=== PATIENT | male | born 1975 | race Caucasian/White ===

== ENCOUNTER 2020-07-26 11:57 | Outpatient (CLI) | payer MEDICARE, SELFPAY ==
[2020-07-26 12:17] LABS: Hematocrit 43.7 % (42.0-52.0); Hemoglobin 15.3 g/dL (14.0-18.0); Mean Corpuscular Hemoglobin 30.5 pg (26-34); Mean Corpuscular Volume 87.2 fl (80-100); Mean Platelet Volume 10.5 fl (7.4-10.4); Platelet Count Result 277 k/mm3 (150-375); Red Blood Count 5.01 M/mm3 (4.6-6.20); White Blood Count 6.8 K/mm3 (4.5-10.0)
[2020-07-26 13:47] LABS: Add Urine Microscopic? NO; Appearance Urine Clear (Clear); Bilirubin Urine Negative (Negative); Blood Urine Negative (Negative); Color Urine Straw (Yellow); Glucose Urine UA Negative (Negative); Ketones Urine Negative (Negative); Leukocyte Esterase Ur Negative LEU/UL (Negative); Nitrate Urine Negative (Negative); Protein Urine Negative (Negative); Specific Grav Ur 1.009 (1.001-1.035); Urobilinogen Urine Negative mg/dL (<2.0)
[2020-07-26 14:00] LABS: Alanine Aminotransferase 19 U/L (4-50); Albumin Level 3.7 g/dL (3.5-5.1); Alkaline Phosphatase 94 U/L (38-126); Anion Gap 6 mmol/L (8-16); Aspartate Amino Transferase 19 U/L (17-59); Bilirubin,Total 0.5 mg/dL (0.2-1.3); Blood Urea Nitrogen 12 mg/dL (9-20); CRP 1.8 mg/dL (<1.0); Calcium 9.3 mg/dL (8.4-10.2); Carbon Dioxide 30 mmol/L (22-30); Chloride 102 mmol/L (98-107); Estimated Glomerular Filt Rate > 60; Glucose 149 mg/dL (75-110); Potassium 4.2 mmol/L (3.4-5.0); Sodium 138 mmol/L (137-145)
[2020-07-26 14:06] LABS: Erythrocyte Sedimentation Rate 19 mm/hr (0-20)
[2020-07-28 20:55] LABS: NIL 0.02 IU/mL; Quantiferon TB Plus, 1T NEGATIVE (NEGATIVE); TB1-NIL 0.01 IU/mL; TB2-NIL 0.01 IU/mL
== END 2020-07-26 11:58 | disposition home or self-care (01) ==
PROVIDERS: PCP Internal Medicine; Visit Provider Internal Medicine
DX: Z79.899 Other long term (current) drug therapy (principal); M05.79 Rheumatoid arthritis with rheumatoid factor of multiple sites without organ or systems involvement; M19.90 Unspecified osteoarthritis, unspecified site
CPT/HCPCS: 36415; 80053; 81003; 85027; 85652; 86140; 86480

== ENCOUNTER 2020-10-15 10:52 | Outpatient (CLI) | payer MEDICARE, SELFPAY ==
[2020-10-15 11:14] LABS: Hematocrit 42.3 % (42.0-52.0); Hemoglobin 14.8 g/dL (14.0-18.0); Mean Corpuscular Volume 88.5 fl (80-100); Mean Platelet Volume 10.6 fl (7.4-10.4); Platelet Count Result 246 k/mm3 (150-375); Red Blood Count 4.78 M/mm3 (4.6-6.20); Red Cell Distribution Width 13.2 % (11.5-14.5); White Blood Count 7.9 K/mm3 (4.5-10.0)
[2020-10-15 12:40] LABS: Alanine Aminotransferase 24 U/L (4-50); Albumin Level 3.7 g/dL (3.5-5.1); Alkaline Phosphatase 90 U/L (38-126); Anion Gap 4 mmol/L (8-16); Aspartate Amino Transferase 27 U/L (17-59); Bilirubin,Total 0.3 mg/dL (0.2-1.3); Blood Urea Nitrogen 13 mg/dL (9-20); CRP 1.3 mg/dL (<1.0); Calcium 9.1 mg/dL (8.4-10.2); Carbon Dioxide 27 mmol/L (22-30); Chloride 106 mmol/L (98-107); Estimated Glomerular Filt Rate > 60; Glucose 116 mg/dL (75-110); Potassium 4.2 mmol/L (3.4-5.0); Sodium 137 mmol/L (137-145)
[2020-10-15 12:46] LABS: Erythrocyte Sedimentation Rate 25 mm/hr (0-20)
[2020-10-15 13:12] LABS: Rheumatoid Factor > 120.0 IU/ML (<12)
[2020-10-15 13:36] LABS: Appearance Urine Clear (Clear); Color Urine Dark Yellow (Yellow); Specific Grav Ur 1.025 (1.001-1.035); pH Urine 7.5 (5.0-9.0)
[2020-10-15 13:37] LABS: Add Urine Microscopic? YES; Bilirubin Urine Negative (Negative); Blood Urine Negative (Negative); Glucose Urine UA Negative (Negative); Ketones Urine Negative (Negative); Nitrate Urine Negative (Negative); Protein Urine Negative (Negative)
[2020-10-15 13:38] LABS: Leukocyte Esterase Ur Negative LEU/UL (Negative); Squamous Epithelial Cell Urine Few /hpf (Few); Urobilinogen Urine Negative mg/dL (<2.0); WBC Urine 0-3 /hpf
[2020-10-21 19:39] LABS: Anti Cyclic Citrullinated Pept 40 Units (<20)
== END 2020-10-15 10:53 | disposition home or self-care (01) ==
LOC: ANHLAB 10:54
PROVIDERS: PCP Internal Medicine; Visit Provider Internal Medicine
DX: M06.09 Rheumatoid arthritis without rheumatoid factor, multiple sites (principal); M19.90 Unspecified osteoarthritis, unspecified site; Z79.899 Other long term (current) drug therapy
CPT/HCPCS: 36415; 80053; 81001; 85027; 85652; 86038; 86140; 86200; 86430

== ENCOUNTER 2020-11-15 08:42 | Outpatient (CLI) | payer MEDICARE, SELFPAY | END 2020-11-15 08:43 | disposition home or self-care (01) | LOC: ANHCOVIDVC 08:42 | PROVIDERS: PCP Internal Medicine | DX: Z23 Encounter for immunization (principal) | CPT/HCPCS: 0001A; 91300 ==

== ENCOUNTER 2020-12-06 08:41 | Outpatient (CLI) | payer MEDICARE, SELFPAY | END 2020-12-06 08:42 | disposition home or self-care (01) | LOC: ANHCOVIDVC 08:41 | PROVIDERS: PCP Internal Medicine | DX: Z23 Encounter for immunization (principal) | CPT/HCPCS: 0002A; 91300 ==

== ENCOUNTER 2021-02-28 11:32 | Outpatient (CLI) | payer MEDICARE, SELFPAY ==
[2021-02-28 11:48] LABS: Hematocrit 42.5 % (42.0-52.0); Hemoglobin 14.7 g/dL (14.0-18.0); Mean Corpuscular HGB Conc 34.6 g/dl (32-36); Mean Corpuscular Hemoglobin 30.2 pg (26-34); Mean Corpuscular Volume 87.4 fl (80-100); Mean Platelet Volume 10.1 fl (7.4-10.4); Platelet Count Result 241 k/mm3 (150-375); Red Blood Count 4.86 M/mm3 (4.6-6.20); Red Cell Distribution Width 14.4 % (11.5-14.5); White Blood Count 6.9 K/mm3 (4.5-10.0)
[2021-02-28 11:54] LABS: Add Urine Microscopic? NO; Color Urine Yellow (Yellow)
[2021-02-28 11:55] LABS: Appearance Urine Clear (Clear); Blood Urine Negative (Negative); Glucose Urine UA Negative (Negative); Ketones Urine Negative (Negative); Nitrate Urine Negative (Negative); Protein Urine Negative (Negative)
[2021-02-28 11:56] LABS: Bilirubin Urine Negative (Negative); Leukocyte Esterase Ur Negative LEU/UL (Negative); Urobilinogen Urine 0.2 mg/dL (<2.0)
[2021-02-28 13:56] LABS: Alanine Aminotransferase 18 U/L (4-50); Albumin Level 3.5 g/dL (3.5-5.1); Alkaline Phosphatase 97 U/L (38-126); Aspartate Amino Transferase 19 U/L (17-59); Bilirubin,Total 0.5 mg/dL (0.2-1.3); Chloride 103 mmol/L (98-107); Potassium 4.1 mmol/L (3.4-5.0); Sodium 135 mmol/L (137-145)
[2021-02-28 15:15] LABS: Anion Gap 9 mmol/L (8-16); Blood Urea Nitrogen 10 mg/dL (9-20); Calcium 8.7 mg/dL (8.4-10.2); Carbon Dioxide 23 mmol/L (22-30); Estimated Glomerular Filt Rate > 60; Glucose 187 mg/dL (65-110)
[2021-02-28 16:23] LABS: Erythrocyte Sedimentation Rate 23 mm/hr (0-20)
[2021-02-28 17:34] LABS: CRP 1.5 mg/dL (<1.0)
== END 2021-02-28 11:33 | disposition home or self-care (01) ==
PROVIDERS: PCP Internal Medicine; Visit Provider Internal Medicine
DX: M05.79 Rheumatoid arthritis with rheumatoid factor of multiple sites without organ or systems involvement (principal); M19.90 Unspecified osteoarthritis, unspecified site
CPT/HCPCS: 36415; 80053; 81003; 85027; 85652; 86140

== ENCOUNTER 2021-10-04 12:18 | Outpatient (CLI) | payer MEDICARE, SELFPAY ==
[2021-10-04 12:42] LABS: Hemoglobin 15.3 g/dL (14.0-18.0); Mean Corpuscular Hemoglobin 31.4 pg (26-34); Mean Corpuscular Volume 92.4 fl (80-100); Mean Platelet Volume 10.5 fl (7.4-10.4); Platelet Count Result 248 k/mm3 (150-375); Red Blood Count 4.87 M/mm3 (4.6-6.20); Red Cell Distribution Width 13.3 % (11.5-14.5); White Blood Count 7.9 K/mm3 (4.5-10.0)
[2021-10-04 14:39] LABS: Add Urine Microscopic? NO; Appearance Urine Clear (Clear); Bilirubin Urine Negative (Negative); Blood Urine Negative (Negative); Color Urine Straw (Yellow); Glucose Urine UA Negative (Negative); Ketones Urine Negative (Negative); Leukocyte Esterase Ur Negative LEU/UL (Negative); Nitrate Urine Negative (Negative); Protein Urine Negative (Negative); Specific Grav Ur 1.009 (1.001-1.035); Urobilinogen Urine Negative mg/dL (<2.0)
[2021-10-04 14:45] LABS: Alanine Aminotransferase 21 U/L (4-50); Albumin Level 3.9 g/dL (3.5-5.1); Alkaline Phosphatase 110 U/L (38-126); Anion Gap 7 mmol/L (8-16); Aspartate Amino Transferase 44 U/L (17-59); Bilirubin,Total 0.4 mg/dL (0.2-1.3); Blood Urea Nitrogen 13 mg/dL (9-20); Calcium 8.8 mg/dL (8.4-10.2); Carbon Dioxide 27 mmol/L (22-30); Chloride 105 mmol/L (98-107); Estimated Glomerular Filt Rate > 60; Glucose 129 mg/dL (65-110); Potassium 3.7 mmol/L (3.4-5.0); Sodium 139 mmol/L (137-145); Uric Acid 6.2 mg/dL (3.5-8.5)
[2021-10-04 15:07] LABS: Erythrocyte Sedimentation Rate 15 mm/hr (0-20)
[2021-10-04 19:22] LABS: CRP 3.3 mg/dL (<1.0)
[2021-10-07 11:47] LABS: NIL 0.01 IU/mL; Quantiferon TB Plus, 1T NEGATIVE (NEGATIVE)
== END 2021-10-04 12:19 | disposition home or self-care (01) ==
PROVIDERS: PCP Internal Medicine; Visit Provider Internal Medicine
DX: M06.09 Rheumatoid arthritis without rheumatoid factor, multiple sites (principal); M19.90 Unspecified osteoarthritis, unspecified site
CPT/HCPCS: 36415; 80053; 81003; 84550; 85027; 85652; 86140; 86480

== ENCOUNTER 2023-11-12 09:23 | Emergency (ER) | payer OTHER, SELFPAY ==
[2023-11-12] VITALS (9 sets, daily range): BP systolic 103–141; BP diastolic 60–86; PULSE 86–99; RESP 17–24; TEMP 36.7; O2SAT 95–100
--- NOTE | ~2023-11-12 | CT_ITS ---
EXAMINATION: CTA chest PE protocol DATE: 11/12/2023 11:12 INDICATION: Shortness of breath. TECHNIQUE: Computed tomography angiography (CTA) of the chest was performed with 100 mL Omnipaque-350 intravenous contrast timed to evaluate the pulmonary arteries. Coronal maximum intensity projection 3D-reconstructions were created by the technologist. Automated exposure control and iterative reconst ruction technique were employed. The dose-length product was 2101.67 mGy-cm. COMPARISON: None. FINDINGS: There is mild emphysema. There is mild atelectasis bilaterally. There are airspace and grou ndglass opacities in left lower lobe. There is a small left pleural effusion. Cardiomegaly is noted. No pericardial effusion. The central pulmonary is enlarged, consistent with pulmonary arterial hypert ension. There is no pulmonary embolus. There is mild mediastinal lymphadenopathy. The gallbladder is distended. There is mild thoracic spondylosis. IMPRESSION: 1. No pulmonary embolus. 2. Airspace and groundglass opacities in left lung lower lobe, consistent with atelectasis versus pne umonia. 3. Small left pleural effusion. 4. Mild emphysema. 5. Mild mediastinal lymphadenopathy, likely reactive. 6. Gallbladder distention, which may be secondary to fasting. Correlate with physical exam to exclude acute cholecystitis. Reviewed, dictated and finalized at location A. IMPRESSION: 1. No pulmonary embolus. 2. Airspace and groundglass opacities in left lung lower lobe, consistent with atelectasis versus pneumonia. 3. Small left pleural effusion. 4. Mild emphysema. 5. Mild mediastinal lymphadenopathy, likely reactive. 6. Gallbladder distention, which may be secondary to fasting. Correlate with ph ysical exam to exclude acute cholecystitis.
--- NOTE | ~2023-11-12 | XR_ITS ---
Portable chest x-ray Comparison: None Clinical History: Chest pain Findings: Lungs are clear, without focal consolidation or pleural effusion. Cardiomediastinal silho uette is enlarged. Bones and soft tissues are unremarkable. Impression: Clear lungs. Cardiomegaly. Reviewed, dictated and finalized at location . Impression: Clear lungs. Cardiomegaly.
--- NOTE | 2023-11-12 09:26 | ECG_ITS ---
Measurements Intervals [place] Rate: 101 P: 48 FL: 141 QRS: 22 QRSD: 118 T: 26 QT: 334 AVG RR: 589 QTc: 392 QTCB: 435 QTCF: 398 Interpretive Statements SINUS TACHYCARDIA POSSIBLE LEFT ATRIA ENLARGEMENT [-0.1mV P WAVE ON V1/V2] MODERATE INTRAVENTRICULAR CONDUCTION DELAY [110+ ms QRS DURATION] NONSPECIFIC ST & T WAVE ABNORMALITY ABNORMAL ECG SEE SCANNED COPY FOR SIGNATURE MTDD
--- NOTE | 2023-11-12 09:34 | ED.CHESTPAIN ---
HPI - Chest Pain General Chief Complaint: Chest Pain Stated Complaint: chest pain History of Present Illness HPI narrative: 48-year-old male presenting to the emergency department for evaluation of chest pain. Patient denies any prior history of coronary artery disease but does have history of hypertension and diabetes. Patient began having chest pain last night. Patient states the pain is worsened with deep inspiration. Patient presented to [place] urgent care and due to the EKG changes they called EMS for a STEMI. Prior to arrival EKG was reviewed by Cardiology and they did not feel this was an acute STEMI. Upon arrival emergency department patient had been treated with nitro and aspirin. Patient states in response to the nitro his pain did improve. Shortly after arrival to the emergency department patient had worsening his chest pain and nitro was read given, nitropaste was placed on chest and EKG was repeated. Patient reports he had a stress test approximately 1 month ago at [facility]. Patient denies any prior history of cardiac catheterization. Related Data Home Medications Medication Instructions Recorded Confirmed furosemide 40 mg tablet 40 mg PO QAM 03/31/20 04/19/23 glimepiride 4 mg tablet 4 mg PO QAM 03/31/20 04/19/23 losartan 25 mg tablet 25 mg PO DAILY 03/31/20 04/19/23 metformin 500 mg tablet 500 mg PO DAILY 03/31/20 04/19/23 multivitamin 1 tablet PO DAILY 12/02/21 04/19/23 Allergies Allergy/AdvReac Type Severity Reaction Status Date / Time No Known Allergies Allergy Verified 11/12/23 09:46 Review of Systems Review of Systems: All systems reviewed & are unremarkable except as noted in HPI and below PMFSH Past Medical History Medical History Annular psoriasis (~2014) Arthritis Current smoker Depression Diabetes Encounter for screening for other viral diseases Pemphigus vulgaris Psoriatic arthritis Rheumatoid arthritis with rheumatoid factor of multiple sites without organ or systems involvement Seronegative rheumatoid arthritis of multiple sites Surgical History Surgical History H/O hernia repair H/O shoulder surgery Social History Social History Smoking packs per day: 2.5 Smoking cigarettes per day: 50.0 Years smoked: 30 Smoking pack-years: 75.00 Smoking status: Current every day smoker Tobacco type: cigarettes Alcohol intake: current Alcohol use details: Rum-weekly Substance use: never Gender identity (if verbalized by the patient): Male Spiritual care concerns: No Exam Narrative: APPEARANCE: Well appearing, no pain, no distress, well-nourished. HEAD: normocephalic, atraumatic. EYES: PERRLA/EOMI, conjunctivae clear. NOSE: Normal no drainage EARS:TMS clear with good light reflex. THROAT: Pharynx clear, no exudate. NECK: Supple. No adenopathy, no masses. RESPIRATORY: Airway patent, respirations nonlabored. Clear to auscultation bilaterally, no rales, rhonchi, wheezing. CARDIOVASCULAR: Regular rate and rhythm without murmurs rubs or gallops. ABDOMINAL: Soft, nontender, nondistended, normal bowel sounds MUSCULOSKELETAL: Moves all extremities. Strength/ROM intact, No edema, No calf tenderness. NEURO: Alert. Cranial nerves II through XII intact. Good gait. Good coordination SKIN: Warm, dry. Normal Color PSYCHIATRIC: Normal affect/mood. Course Vital Signs Vital signs: Vital Signs Temperature 98.1 F 11/12/23 09:22 Pulse Rate 98 11/12/23 09:22 Respiratory Rate 20 11/12/23 09:22 Blood Pressure 141/86 H 11/12/23 09:22 Pulse Oximetry 99 11/12/23 09:22 Oxygen Delivery Room Air 11/12/23 09:22 Temperature 98.1 F 11/12/23 09:22 Pulse Rate 86 11/12/23 13:55 Respiratory Rate 17 11/12/23 13:55 Blood Pressure 115/71 11/12/23 13:55 Pulse Oximetry 99 11/12/23 13:55 Oxyg
--- NOTE | 2023-11-12 09:38 | ECG_ITS ---
Measurements Intervals [place] Rate: 99 P: 41 [place]: 156 QRS: 10 QRSD: 117 T: 16 QT: 345 AVG RR: 603 QTc: 401 QTCB: 444 QTCF: 408 Interpretive Statements SINUS RHYTHM POSSIBLE LEFT ATRIA ENLARGEMENT [-0.1mV P WAVE ON V1/V2] MODERATE INTRAVENTRICULAR CONDUCTION DELAY [110+ ms QRS DURATION] NONSPECIFIC ST & T WAVE ABNORMALITY ABNORMAL ECG SEE SCANNED COPY FOR SIGNATURE MTDD
[2023-11-12] MEDS: NITROGLYCERIN SL 0.4 MG TABLET SUBLINGUAL (09:41)
[2023-11-12] MEDS: MORPHINE SULFATE (*CRX) 4 MG/ML INJ IV PUSH (09:46)
[2023-11-12 09:49] LABS: Basophils Percent Auto 0.3 % (0.2-1.2); Eosinophils Absolute Auto 0.1 K/mm3 (0-0.3); Eosinophils Percent Auto 0.7 % (0-4.4); Hematocrit 45.7 % (42.0-52.0); Hemoglobin 15.8 g/dL (14.0-18.0); Immature Granulocyte Absolute 0.07 K/mm3 (0.00-0.031); Immature Granulocyte Percent A 0.5 % (0-0.5); Lymphocytes Absolute Auto 0.89 K/mm3 (0.9-3.2); Lymphocytes Percent Auto 6.6 % (18.3-44.2); Mean Corpuscular HGB Conc 34.6 g/dl (32-36); Mean Corpuscular Hemoglobin 30.5 pg (26-34); Mean Corpuscular Volume 88.2 fl (80-100); Mean Platelet Volume 11.6 fl (7.4-10.4); Monocytes Absolute Auto 1.3 K/mm3 (0.1-0.6); Monocytes Percent Auto 9.7 % (2.6-8.5); Neutrophils Absolute Auto 11.1 K/mm3 (1.3-6.7); Neutrophils Percent Auto 82.2 % (45.5-73.1); Platelet Count Result 192 k/mm3 (150-375); Red Blood Count 5.18 M/mm3 (4.6-6.20); Red Cell Distribution Width 14.5 % (11.5-14.5); White Blood Count 13.6 K/mm3 (4.5-10.0)
[2023-11-12 09:55] LABS: Glucose Point of Care 296 mg/dl (65-105)
[2023-11-12] MEDS: NITROGLYCERIN OINTMENT 1 INCH DOSE TRANSDERM (09:56)
[2023-11-12 10:04] LABS: Prothrombin Time 13.5 Seconds (11.1-14.7)
[2023-11-12 10:08] LABS: Alanine Aminotransferase 19 U/L (6-50); Albumin Level 4.1 g/dL (3.5-5.1); Alkaline Phosphatase 114 U/L (38-126); Anion Gap 8 mmol/L (4-12); Aspartate Amino Transferase 17 U/L (17-59); Bilirubin,Total 1.1 mg/dL (0.2-1.3); Blood Urea Nitrogen 12 mg/dL (9-20); Calcium 9.6 mg/dL (8.4-10.2); Carbon Dioxide 27 mmol/L (22-30); Chloride 101 mmol/L (98-107); Estimated CRCL calculation 190 ml/min; Estimated Glomerular Filt Rate > 60; Glucose 296 mg/dL (65-110); Lipase 26 U/L (23-300); Potassium 4.1 mmol/L (3.4-5.0); Sodium 136 mmol/L (137-145)
[2023-11-12 10:19] LABS: D Dimer 2.03 ug/mL (<0.48)
[2023-11-12 10:20] LABS: NT Pro B Type Natriuretic Pept 317 pg/mL (19.9-100); Troponin I 0.014 ng/mL (0.000-0.034)
[2023-11-12 11:30] LABS: Appearance Urine Clear (Clear); Bilirubin Urine Negative (Negative); Blood Urine Negative (Negative); Color Urine Yellow (Yellow); Glucose Urine UA 3+ mg/dL (Negative); Ketones Urine Negative (Negative); Leukocyte Esterase Ur Negative LEU/UL (Negative); Nitrate Urine Negative (Negative); Protein Urine Negative (Negative); Specific Grav Ur 1.018 (1.001-1.035); Urobilinogen Urine 0.2 mg/dL (<2.0); pH Urine 5.5 (5.0-9.0)
[2023-11-12 11:38] LABS: Add Urine Microscopic? NO
[2023-11-12] MEDS: PANTOPRAZOLE SODIUM IV 40 MG VIAL IV PUSH (11:48)
[2023-11-12] MEDS: BELLADONNA ALK/PHENOB ELIX 10 ML, MAG HYDROX/ALUMINUM HYD/SIMETH 30 ML, LIDOCAINE HCL 2... PO (11:48)
--- NOTE | 2023-11-12 11:50 | PC.NURSE ---
EDP Jaime made aware of bp. nitro past not helping with pt's pain. removed nitro paste from chest per EDNathan Sandoval.
--- NOTE | 2023-11-12 12:30 | ECG_ITS ---
Measurements Intervals [place] Rate: 89 P: 7 [place]: 131 QRS: 1 QRSD: 121 T: 9 QT: 358 AVG RR 670 QTc: 405 QTcB 437 QTcF 409 Interpretive Statements SINUS RHYTHM MODERATE INTERVENTRICULAR CONDUCTION DELAY [110+ ms QRS DURATION] NONSPECIFIC ST & T-WAVE ABNORMALITY ABNORMAL ECG SEE SCANNED COPY FOR SIGNATURE MTDD
[2023-11-12 12:59] LABS: Troponin I < 0.012 ng/mL (0.000-0.034)
[2023-11-12] MEDS: AMOXICILLIN/CLAVULANATE K 875-125 MG TAB 1 TABLET PO (13:35)
[2023-11-12] MEDS: AZITHROMYCIN 250 MG TABLET 500 MG PO (13:35)
[2023-11-12] MEDS: KETOROLAC 15 MG/ML VIAL (*BKC) IV PUSH (13:35)
== END 2023-11-12 13:56 | disposition home or self-care (01) ==
PROVIDERS: Emergency Provider Emergency Medicine; PCP Internal Medicine
DX: J18.9 Pneumonia, unspecified organism (principal); R09.1 Pleurisy; F17.210 Nicotine dependence, cigarettes, uncomplicated; M19.90 Unspecified osteoarthritis, unspecified site; F32.A Depression, unspecified; E11.9 Type 2 diabetes mellitus without complications; Z79.84 Long term (current) use of oral hypoglycemic drugs
CPT/HCPCS: 36415; 71045; 71275; 80053; 81003; 82948; 83690; 83880; 84484; 85025; 85380; 85610; 85730; 93005; 96374; 96375; 99284; A9270; C9113; J1885; J2270; Q9967

== ENCOUNTER 2023-11-26 10:57 | Inpatient (IN) | payer OTHER, SELFPAY ==
[2023-11-26] VITALS (48 sets, daily range): BP systolic 73–152; BP diastolic 50–96; PULSE 67–166; RESP 14–43; TEMP 36.1–36.9; O2SAT 97–100
--- NOTE | ~2023-11-26 | CT_ITS ---
EXAMINATION: CTA chest PE protocol DATE: 11/26/2023 14:18 CDT INDICATION: Tachycardia. Chest pain. TECHNIQUE: Computed tomographic angiography (CTA) of the chest was performed with 100 mL Omnipaque-35 0 intravenous contrast. The dose-length product was 1257.61 mGy-cm. Maximum intensity projection 3D-r econstructions of the aorta and other arteries were constructed by the technologist on a separate wor kstation. COMPARISON: CT dated 11/12/2023. FINDINGS: There is a small left pleural effusion. There is pericardial effusion. Gallbladder is diste nded. Mild mediastinal lymphadenopathy, likely reactive. Cardiomegaly. Mild emphysema. There are grou ndglass opacities bilaterally, predominantly affecting the lower lobes. Moderate thoracic spondylosis . No evidence for pulmonary embolism. IMPRESSION: 1. No pulmonary embolism. 2: Groundglass opacities predominantly affecting the lower lobes which may represent pneumonia, atel ectasis and/or edema. 3: Left pleural effusion. 4: Pericardial effusion is new compared with prior study. 5: Mediastinal lymphadenopathy, likely reactive. Reviewed, dictated and finalized at location B. IMPRESSION: 1. No pulmonary embolism. 2: Groundglass opacities predominantly affecting the lower lobes which may rep resent pneumonia, atelectasis and/or edema. 3: Left pleural effusion. 4: Pericardial effusion is new compared with prior study. 5: Mediastinal lymphadenopathy, likely reactive.
--- NOTE | ~2023-11-26 | XR_ITS ---
EXAMINATION: XR chest 1V portable DATE: 11/26/2023 11:52 INDICATION: Tachycardia. Diaphoresis. TECHNIQUE: A single frontal view of the chest was obtained on 2 radiographs. COMPARISON: Chest single view 11/12/2023, chest CT 11/12/2023 FINDINGS: Naty B lines are noted, consistent mild pulmonary edema. There is a small left pleural ef fusion. No pneumothorax. Cardiomegaly is noted. IMPRESSION: 1. Mild pulmonary edema. 2. Small left pleural effusion. 3. Cardiomegaly. Reviewed, dictated and finalized at location E.
--- NOTE | 2023-11-26 11:00 | ECG_ITS ---
SEE SCANNED COPY FOR CONFIRMED REPORT MTDD
[2023-11-26] MEDS: dilTIAZem HCl INJ 25 MG/5 ML VIAL 20 MG IV PUSH (11:31)
[2023-11-26] MEDS: dilTIAZem 100 MG/100 ML 100 MG/100 ML BAG 10 MG IV CONT (11:31)
--- NOTE | 2023-11-26 11:35 | ED.ARRPALP ---
HPI - Arrhythmia/Palpitations General Chief Complaint: Arrhythmia/Palpitations Stated Complaint: elevated resting heart rate Time Seen by Provider: 11/26/23 11:24 History of Present Illness HPI narrative: Pt recently had pneumonia and has been on steroids and antibiotics. Pt noted by Home Health to be tachycardic and sent to ER. Pt denies CP but does have some leg swelling and SOB. Related Data Home Medications Medication Instructions Recorded Confirmed furosemide 40 mg tablet 40 mg PO QAM 03/31/20 04/19/23 glimepiride 4 mg tablet 4 mg PO QAM 03/31/20 04/19/23 losartan 25 mg tablet 25 mg PO DAILY 03/31/20 04/19/23 metformin 500 mg tablet 500 mg PO DAILY 03/31/20 04/19/23 multivitamin 1 tablet PO DAILY 12/02/21 04/19/23 Allergies Allergy/AdvReac Type Severity Reaction Status Date / Time No Known Allergies Allergy Verified 11/26/23 10:58 Review of Systems Review of Systems: All systems reviewed & are unremarkable except as noted in HPI and below PMFSH Past Medical History Medical History Annular psoriasis (~2014) Arthritis Current smoker Depression Diabetes Encounter for screening for other viral diseases Pemphigus vulgaris Psoriatic arthritis Rheumatoid arthritis with rheumatoid factor of multiple sites without organ or systems involvement Seronegative rheumatoid arthritis of multiple sites Surgical History Surgical History H/O hernia repair H/O shoulder surgery Social History Social History Smoking packs per day: 2.5 Smoking cigarettes per day: 50.0 Years smoked: 30 Smoking pack-years: 75.00 Smoking status: Current every day smoker Tobacco type: cigarettes Alcohol intake: current Alcohol use details: Rum-weekly Substance use: never Gender identity (if verbalized by the patient): Male Spiritual care concerns: No Exam Const: General: healthy appearing and no acute distress Nutritional Appearance: obese Orientation/consciousness: patient oriented x3 Limitations: no limitations Chest: Chest palpation & inspection: normal inspection of the chest Resp: Effort & Inspection: normal respiratory effort Auscultation: clear to auscultation bilaterally Cardio: Rate: tachycardic Rhythm: regular rhythm GI: Auscultation: normal bowel sounds Skin: General skin exam: normal color Wounds: no wounds Neuro: General: patient oriented x3, moves all extremities, no meningeal signs, no focal motor deficits and CN's II-XI intact bilaterally Cranial nerves: Yes Nystagmus not present Speech: normal speech Extrem: General: edema Psych: Mental Status: mental status grossly normal Affect: normal affect Attitude: cooperative Course Course Emergency Course: gave cardizem bolus of 20 mg and then 30 mg as well as titrated drip without effect on HR, gave labetolol 20 mg IVP which also had no effect on HR but dropped BP, gave 500 ml bolus for BP and called Laura Lang, cardiology, recommended amiodarone, will give bolus and then drip if converts. still HR of 150 at 1335 and now pt diaphoretic and complaining of right sided CP, repeat ekg stil a flutter with rvr rate 151, will give a low dose fentanyl and cta chest. CTA no PE, pericardial effusion new pneumonia vs edema. discussed with Laura Lang again, said IMU appropriate, can try po metoprolol and wait for meds to kick in. will wait before cardioversion since stable and risk of cva with unknown duration of a flutter. discussed with Dr Mcgowan and ok accepting if cardiology ok with IMU. Vital Signs Vital signs: Vital Signs Temperature 98.4 F 11/26/23 11:02 Pulse Rate 67 11/26/23 11:02 Respiratory Rate 20 11/26/23 11:02 Blood Pressure 152/88 H 11/26/23 11:02 Pulse Oximetry 99 11/26/23 11:02 Oxygen Delivery Room Air 11/26/23 11:02 Temperature 97.8 F 11/25
[2023-11-26 11:39] LABS: Basophils Absolute Auto 0.1 K/mm3 (0.0-0.1); Basophils Percent Auto 0.5 % (0.2-1.2); Eosinophils Absolute Auto 0.1 K/mm3 (0-0.3); Eosinophils Percent Auto 0.9 % (0-4.4); Hematocrit 44.4 % (42.0-52.0); Hemoglobin 15.3 g/dL (14.0-18.0); Immature Granulocyte Absolute 0.04 K/mm3 (0.00-0.031); Immature Granulocyte Percent A 0.3 % (0-0.5); Lymphocytes Absolute Auto 1.33 K/mm3 (0.9-3.2); Lymphocytes Percent Auto 10.6 % (18.3-44.2); Mean Corpuscular HGB Conc 34.5 g/dl (32-36); Mean Corpuscular Hemoglobin 30.7 pg (26-34); Mean Corpuscular Volume 89.2 fl (80-100); Monocytes Absolute Auto 1.1 K/mm3 (0.1-0.6); Neutrophils Absolute Auto 9.9 K/mm3 (1.3-6.7); Neutrophils Percent Auto 78.7 % (45.5-73.1); Platelet Count Result 276 k/mm3 (150-375); Red Blood Count 4.98 M/mm3 (4.6-6.20); Red Cell Distribution Width 13.8 % (11.5-14.5); White Blood Count 12.6 K/mm3 (4.5-10.0)
[2023-11-26 11:49] LABS: Alanine Aminotransferase 19 U/L (6-50); Albumin Level 4.1 g/dL (3.5-5.1); Alkaline Phosphatase 114 U/L (38-126); Anion Gap 6 mmol/L (4-12); Aspartate Amino Transferase 19 U/L (17-59); Bilirubin,Total 0.8 mg/dL (0.2-1.3); Blood Urea Nitrogen 10 mg/dL (9-20); Calcium 9.3 mg/dL (8.4-10.2); Carbon Dioxide 31 mmol/L (22-30); Chloride 103 mmol/L (98-107); Estimated CRCL calculation 191 ml/min; Estimated Glomerular Filt Rate > 60; Glucose 321 mg/dL (65-110); Potassium 3.6 mmol/L (3.4-5.0); Sodium 140 mmol/L (137-145)
[2023-11-26 11:52] LABS: INR 1.1; Prothrombin Time 14.5 Seconds (11.1-14.7)
[2023-11-26 11:53] LABS: Partial Thromboplastin Time 28.4 Seconds (22.3-36.8)
[2023-11-26 11:57] LABS: NT Pro B Type Natriuretic Pept 1050 pg/mL (19.9-100)
[2023-11-26 12:06] LABS: Troponin I 0.039 ng/mL (0.000-0.034)
[2023-11-26] MEDS: dilTIAZem HCl INJ 25 MG/5 ML VIAL 30 MG IV PUSH (12:10)
[2023-11-26] MEDS: LABETALOL HCL INJ 100 MG/20 ML VIAL 20 MG IV PUSH (12:39)
--- NOTE | 2023-11-26 12:43 | PC.NURSE ---
Dr. Villareal informed heart rate unchanged. Orders received for Labatelol & contibue Cardizem drip. Pt denies any CP or SOB
[2023-11-26] MEDS: SODIUM CHLORIDE 0.9% IV 500 ML 999 ML (12:56)
--- NOTE | 2023-11-26 13:02 | PC.NURSE ---
After Labetolol pt became diaphorectic, states he feels weird, B/P 73/[address] Villareal informed and assessed pt Cardizem drip stopped, NS bolus initiated.
[2023-11-26 13:07] LABS: Glucose Point of Care 291 mg/dl (65-105)
[2023-11-26] MEDS: AMIODARONE 150 MG/D5W 100 ML 150 MG/100 ML BAG 600 MG IV CONT ×2 (13:25→20:01)
--- NOTE | 2023-11-26 13:39 | PC.NURSE ---
1330- Pt c/o midsternal chest pain that radiates to right chest & axilla area. Remain diaphoretic & aflutter on monitor. Dr. Villareal informed came to bedside to assess. EKG performed with no change from initial EKG. Orders received
[2023-11-26] MEDS: fentaNYL CITRATE INJ (*CRX) 100 MCG/2 ML VIAL 25 MCG IV PUSH (13:40)
[2023-11-26 15:10] LABS: Thyroid Stimulating Hormone 0.258 uIU/mL (0.465-4.680)
[2023-11-26] MEDS: AMIODARONE 360 MG/D5W 200 ML 360 MG/200 ML BAG 33.33 MG IV CONT (15:14)
--- NOTE | 2023-11-26 15:17 | PC.NURSE ---
1400Pt states chest pain down to a 3, skim dry & cool.
[2023-11-26] MEDS: METOPROLOL SUCCINATE EXT REL 25 MG TABCR PO (15:22)
[2023-11-26 15:40] LABS: Troponin I 0.027 ng/mL (0.000-0.034)
--- NOTE | 2023-11-26 16:05 | PC.NURSE ---
Pt tolerating Amiodarone well. Pt remains in Aflutter.
--- NOTE | 2023-11-26 16:48 | ADMGEN ---
This patient, Vladimir Feng, was admitted to IMU Room 207-01 on 11/26/23 at 1628. Patient/family oriented to hospital policies and general routines including ID bracelet, bed and alarms, visiting hours, pain management, procedures, bathroom and other care routines, personal items, smoking policy, room service/diet, and visiting hours. Information on how to activate the Rapid Response Team has been discussed. Patient/Family are encouraged to report perceived risks to care and to ask questions if they do not understand what they are told or what they should do.
[2023-11-26 17:58] LABS: Troponin I 0.064 ng/mL (0.000-0.034)
[2023-11-26 18:04] LABS: CRP 15.9 mg/dL (<1.0)
--- NOTE | 2023-11-26 18:07 | PM.IMHP ---
H&P: HPI History of Present Illness Date/Time: 11/26/23 18:07 Chief Complaint: Shortness of breath Narrative: This is a 48-year-old male with a history of morbid obesity, hypertension, [id number] diabetes mellitus, lower extremity swelling, tobacco abuse, alcohol use, COPD, rheumatoid arthritis. He denies any cardiac history and apparently had a stress test at [facility] 1 month ago. At the beginning of November he presented to [facility] with chest pain. He was deemed not to have a cardiac event but was supposed to be admitted for cardiac rule out but the patient left. There was a possibility of pneumonia so he was given Augmentin and azithromycin. He reports he finished that antibiotic course and also took a steroid pack. He reports he has not felt well since then sometimes he has chest pain on the right ribs but mostly presented because of shortness of breath. He denies feeling palpitations or diaphoresis nausea vomiting abdominal pain or diarrhea. He has not had a upper respiratory infection recently. He has had lower extremity edema for some time does take furosemide at home. He started taking phentermine for weight loss in the past few months. He stopped his methotrexate and wanted to follow-up with a paper processing machine helper for his rheumatoid arthritis. In [facility] he was found to be in atrial flutter with a rapid rate of 150-160. He presented normotensive but after multiple blood pressure lowering medications his systolic has been running in the 90s to 100s. EKG did not demonstrate acute ischemia however troponin was 0.039. BNP 1050. TSH 0.25 a. Cardiology was consulted from the ER and advised to be admitted to IMU. A CTA demonstrated no PE but ground-glass opacities affecting the lower lobes which could be edema or pneumonia, left-sided pleural effusion size undetermined, pericardial effusion size undetermined. He was given diltiazem 20 mg IV x1, diltiazem 30 mg IV x1, labetalol 20 mg IV x1, sodium chloride bolus 500 cc, fentanyl 25 mcg IV x1, metoprolol succinate 25 mg p.o. x1, amiodarone bolus 150 mg, then placed on amiodarone GTT at 1 milligrams/minute. Upon evaluation in room 207 the patient states he feels slightly better than when he came in and does not really have shortness of breath or chest pain at the moment. Sits up at the edge of bed and converses normally. Review of Systems Review of Systems: All systems reviewed & are unremarkable except as noted in HPI and below (Subjective) [facility] Past Medical History Medical History Annular psoriasis (~2014) Arthritis Current smoker Depression Diabetes Encounter for screening for other viral diseases Pemphigus vulgaris Psoriatic arthritis Rheumatoid arthritis with rheumatoid factor of multiple sites without organ or systems involvement Seronegative rheumatoid arthritis of multiple sites Surgical History Surgical History H/O hernia repair H/O shoulder surgery Family History Family History (Updated 11/26/23 @ 17:30 by Kylee Burgos RN) Other Unknown family medical history Social History Social History Smoking packs per day: 2.5 Smoking cigarettes per day: 50.0 Years smoked: 30 Smoking pack-years: 75.00 Smoking status: Current every day smoker Tobacco type: cigarettes Alcohol intake: current Drinks per week: 6 Alcohol use details: Rum-weekly Substance use: never Substance use type: does not use Do You Feel Safe in your Home?: Yes Lack of Transportation: No Lack of Food: Never True Current Housing: I Have Housing Concerned About Future Housing: No Difficulty Paying Gas/Electric Bills: No Difficulty Paying for Meds: No Currently Unemployed: No Education: High School Diploma/GED Difficulty w/ Childcare or Family Care: No Gender identity (if verb
[2023-11-26 18:37] LABS: Erythrocyte Sedimentation Rate 42 mm/hr (0-20)
[2023-11-26 18:51] LABS: Free T4 Free Thyroxine 2.45 ng/mL (0.78-2.19)
[2023-11-26] MEDS: HEPARIN SOD/D5W 100 UNITS/ML 25,000 UNITS/250 ML BAG 15 UNITS IV CONT (19:29)
[2023-11-26 20:26] LABS: Influenza A QL RT-PCR Negative (Negative); Influenza B QL RT-PCR Negative (Negative); RSV RNA, RT-PCR Negative (Negative); SARS-CoV-2 RNA PCR Negative (Negative)
[2023-11-26] MEDS: CEFEPIME 2 GM/NS 50 ML 2 GM/50 ML BAG IVPB (20:53)
[2023-11-26] MEDS: AMIODARONE 360 MG/D5W 200 ML 360 MG/200 ML BAG 16.67 MG IV CONT (20:53)
[2023-11-26 21:08] LABS: MRSA (PCR) DETECTED (NOT DETECTE)
[2023-11-26] MEDS: VANCOMYCIN 1,250 MG/NS 250 ML 1,250 MG/250 ML BAG 166.67 MG IVPB ×2 (21:36→23:06)
[2023-11-26] MEDS: METOPROLOL TARTRATE INJ 5 MG/5 ML VIAL IV PUSH ×3 (22:26→23:46)
[2023-11-26 23:10] LABS: Troponin I 0.147 ng/mL (0.000-0.034)
--- NOTE | 2023-11-26 23:54 | ECG_ITS ---
SEE SCANNED COPY FOR CONFIRMED REPORT MTDD
[2023-11-27] VITALS (25 sets, daily range): BP systolic 105–129; BP diastolic 67–115; PULSE 146–160; RESP 20–28; TEMP 36.1–36.9; O2SAT 96–100
--- NOTE | 2023-11-27 | ECHO_ITS ---
Patient Info Name: Vladimir Feng Age: 48 years : 1975 Gender: Male Ht: 75 in Wt: 396 lbs BSA: 3.17 m2 HR: 148 bpm BP: 121 / 92 mmHg Heart Rhythm: Tachycardia, Atrial Flutter Technical Quality: Fair Exam Date: 11/27/2023 8:41 AM Exam Location: Echo Lab Patient Status: Inpatient Admit Date: 11/26/2023 Staff Ordering Physician: Sherri Mcgowan MD Tool Repair Technician: Bobbi Diaz RDCS Attending Provider: Sherri Mcgowan MD Exam Type: CA echo dop color flow w con Study Info Indications - pericardial effusion seen on ct Complete two-dimensional, color flow and Doppler transthoracic echocardiogram is performed with contrast to opacify the left ventricle and to improve the deliniation of the left ventricle endocardial borders. Contrast/Agitated Saline Contrast/Ag. Saline: Definity Amount: 2.00 ml Administered By: Bobbi Diaz RDCS Existing IV Access: Yes IV Access Condition: patent with no signs of infiltration Summary 1. Technically difficult study with limited views. 2. Left ventricular chamber dimension is normal. 3. Left ventricular systolic function is moderately reduced, estimated at 30-35%. However, patient is quite tachycardic during this study. 4. There is mildly increased left ventricular wall thickness. 5. Right ventricular chamber dimension is normal. 6. Right ventricular systolic function is reduced. 7. There is small circumferential pericardial effusion. 8. No significant valvular disease appreciated on this study. Left Ventricle Left ventricular chamber dimension is normal. Left ventricular systolic function is moderately reduced, estimated at 30-35%. However, patient is quite tachycardic during this study. There is mildly increased left ventricular wall thickness. Right Ventricle Right ventricular chamber dimension is normal. Right ventricular systolic function is reduced. Left Atria Left atrial chamber dimension is normal. Right Atria Right atrial chamber dimension is normal. Atrial Septum Intact interatrial septum visualized by color flow imaging. Aortic Valve The aortic valve is not well visualized. There is no aortic valve stenosis. There is no aortic valve regurgitation. Pulmonic Valve The pulmonic valve is not well visualized. Mitral Valve There is trace mitral valve regurgitation. The mitral valve annulus is mildly calcified. Tricuspid Valve There is trace tricuspid valve regurgitation. Pericardium/Pleural There is small circumferential pericardial effusion. Inferior Vena Cava Dilated inferior vena cava with <50% collapse upon inspiration consistent with elevated right atrial pressure, 15 mmHg. Aorta The aortic root size at the sinus of Valsalva is not well visualized. Left Ventricular Outflow Tract Name Value Normal LVOT 2D LVOT Diameter 2.03 cm LVOT Doppler LVOT Peak Gradient 3 mmHg LVOT Mean Gradient 1 mmHg LVOT VTI 11.80 cm LVOT VTI/AV VTI Ratio 0.48 LVOT Stroke Volume 38.28 ml LVOT CO 6.05 l/min LVOT CI
[2023-11-27 01:50] LABS: Partial Thromboplastin Time 34.7 Seconds (22.3-36.8)
[2023-11-27 02:02] LABS: Troponin I 0.136 ng/mL (0.000-0.034)
[2023-11-27] MEDS: NICOTINE (*PBKC) 21 MG PATCH 1 PATCH TRANSDERM (02:05)
[2023-11-27] MEDS: HEPARIN SODIUM 5,000 UNITS/ML VIAL 9500 UNITS IV PUSH ×2 (02:06→22:13)
[2023-11-27] MEDS: CEFEPIME 2 GM/NS 50 ML 2 GM/50 ML BAG IVPB ×3 (03:37→20:44)
[2023-11-27] MEDS: PERFLUTREN LIPID MICROSPHERES 1.5 ML VIAL DILUTED TO 10 ML TOTAL VOLUME IV PUSH (08:30)
[2023-11-27 08:52] LABS: Basophils Absolute Auto 0.1 K/mm3 (0.0-0.1); Basophils Percent Auto 0.5 % (0.2-1.2); Eosinophils Absolute Auto 0.1 K/mm3 (0-0.3); Eosinophils Percent Auto 1.1 % (0-4.4); Hemoglobin 13.8 g/dL (14.0-18.0); Immature Granulocyte Absolute 0.04 K/mm3 (0.00-0.031); Immature Granulocyte Percent A 0.4 % (0-0.5); Lymphocytes Absolute Auto 1.41 K/mm3 (0.9-3.2); Lymphocytes Percent Auto 13.6 % (18.3-44.2); Mean Corpuscular HGB Conc 33.7 g/dl (32-36); Mean Corpuscular Hemoglobin 30.4 pg (26-34); Mean Corpuscular Volume 90.3 fl (80-100); Mean Platelet Volume 12.8 fl (7.4-10.4); Monocytes Absolute Auto 1.1 K/mm3 (0.1-0.6); Monocytes Percent Auto 10.2 % (2.6-8.5); Neutrophils Absolute Auto 7.7 K/mm3 (1.3-6.7); Neutrophils Percent Auto 74.2 % (45.5-73.1); Platelet Count Result 263 k/mm3 (150-375); Red Blood Count 4.54 M/mm3 (4.6-6.20); Red Cell Distribution Width 13.8 % (11.5-14.5); White Blood Count 10.4 K/mm3 (4.5-10.0)
--- NOTE | 2023-11-27 09:01 | PM.CNCAR ---
Assessment and Plan Assessment and plan (1) Atrial flutter with rapid ventricular response: Code(s): I48.92 - Unspecified atrial flutter Status: Acute Assessment and Plan: New diagnosis with unknown chronicity, though he had normal pulse rate at PCP office on 11/14/23, so the onset has been since that time. On an amiodarone drip at this point and remains in atrial flutter with rapid ventricular response, rate in the 150s. Continue amiodarone drip Will add oral metoprolol for rate control Continue heparin drip Plan for SIERRA guided cardioversion tomorrow with anesthesia after surface echo from today is reviewed Continue telemetry NPO at midnight for SIERRA/CV tomorrow (2) Pericardial effusion: Code(s): I31.39 - Other pericardial effusion (noninflammatory) Status: Acute Assessment and Plan: Pericardial effusion seen on chest CTA yesterday. Will check TTE today to better define size, location, and any echocardiographic evidence of tamponade. (3) Pleural effusion: Code(s): J90 - Pleural effusion, not elsewhere classified Status: Acute (4) Current smoker: Code(s): F17.200 - Nicotine dependence, unspecified, uncomplicated Status: Acute Assessment and Plan: Smoking cessation recommended. History of Present Illness History of Present Illness Consult date/time: 11/27/23 09:01 Requesting physician: Debra Villareal III, DO Consult reason: Other (Atrial flutter) Reason For Visit: A Flutter with RVR Narrative: Vladimir Feng is a 48 year old male with type 2 diabetes mellitus, hypertension, WALKER on CPAP, and hyperlipidemia. He is also smoker and uses alcohol. He comes to the hospital because his home health nurse advised him to do so after finding that his heart rate was in the 170s yesterday. At that time, he had no symptoms that would indicate that he was tachycardic. He had however been experiencing some chest pain with deep breathing and with lying down flat. In the emergency room, EKG demonstrated rapid atrial flutter. He was given multiple doses of diltiazem with no reduction in his heart rate. Therefore, IV Lopressor was attempted which resulted in his blood pressure dropping to the 80s systolic. He was then placed on an amiodarone drip which he remains on now. His heart rate remains in the 150s in atrial flutter. He denies any history of cardiac problems including any a arrhythmias, heart failure, coronary artery disease (apparently had a stress test about a month ago which was negative). He did come to [facility] a couple of weeks ago with a complaint of chest pain and had a full workup done which was essentially negative except for he was found to have a pneumonia she was treated for with antibiotics. With note, he was placed on phentermine by his primary care doctor about a month or so ago. He states that he began to notice some chest discomfort with deep breathing and lying down flat a few days ago but denies any palpitations, worsening edema, exertional chest pain, orthopnea, paroxysmal nocturnal dyspnea, syncope, or presyncope. Review of Systems Review of Systems: All systems reviewed & are unremarkable except as noted in HPI and below PMFSH Past Medical History Medical History Annular psoriasis (~2014) Arthritis Current smoker Depression Diabetes Encounter for screening for other viral diseases Pemphigus vulgaris Psoriatic arthritis Rheumatoid arthritis with rheumatoid factor of multiple sites without organ or systems involvement Seronegative rheumatoid arthritis of multiple sites Surgical History Surgical History H/O hernia repair H/O shoulder surgery Family History Family History Other Unknown family medical history Social History Social History (Review
[2023-11-27] MEDS: AMIODARONE 360 MG/D5W 200 ML 360 MG/200 ML BAG 16.67 MG IV CONT ×2 (09:02→23:37)
[2023-11-27] MEDS: VANCOMYCIN 1,500 MG/NS 500 ML 1,500 MG/500 ML BAG 250 MG IVPB ×2 (09:04→22:28)
[2023-11-27] MEDS: HEPARIN SOD/D5W 100 UNITS/ML 25,000 UNITS/250 ML BAG 20 UNITS IV CONT (09:06)
[2023-11-27 09:19] LABS: Alanine Aminotransferase 17 U/L (6-50); Albumin Level 3.6 g/dL (3.5-5.1); Alkaline Phosphatase 89 U/L (38-126); Anion Gap 8 mmol/L (4-12); Aspartate Amino Transferase 22 U/L (17-59); Bilirubin,Total 0.5 mg/dL (0.2-1.3); Blood Urea Nitrogen 12 mg/dL (9-20); Calcium 7.6 mg/dL (8.4-10.2); Carbon Dioxide 25 mmol/L (22-30); Chloride 94 mmol/L (98-107); Estimated CRCL calculation 264 ml/min; Estimated Glomerular Filt Rate > 60; Glucose 528 mg/dL (65-110); Magnesium 1.7 mg/dL (1.6-2.3); Potassium 3.4 mmol/L (3.4-5.0); Sodium 127 mmol/L (137-145)
--- NOTE | 2023-11-27 09:31 | PM.IMPN ---
Progress Note: A&P Assessment and Plan (1) Atrial flutter with rapid ventricular response: Code(s): I48.92 - Unspecified atrial flutter Status: Acute (2) Current smoker: Code(s): F17.200 - Nicotine dependence, unspecified, uncomplicated Status: Acute (3) Leukocytosis: Code(s): D72.829 - Elevated white blood cell count, unspecified Status: Acute (4) Pericardial effusion: Code(s): I31.39 - Other pericardial effusion (noninflammatory) Status: Acute (5) Pleural effusion: Code(s): J90 - Pleural effusion, not elsewhere classified Status: Acute Plan 48-year-old male with history of morbid obesity hypertension [id number] diabetes mellitus lower extremity swelling tobacco abuse alcohol use COPD rheumatoid arthritis presented with tachycardia noted by home health and was sent to the ER. He denied any chest pain but does have chronic lower extremity edema and shortness of breath. He was recently treated for pneumonia and has been on steroid and antibiotics. Also started taking phentermine for weight loss in past few months. In the ED is found to be in atrial flutter with rapid rate of 150-160 remained normotensive after multiple blood pressure lowering medications systolic blood pressure dropped. EKG did not show any acute ischemia however troponin was mildly elevated at 0.039. BNP of 1 0 50. TSH 0.25. Cardiology has been consulted. CTA was performed which showed no PE but ground-glass opacities affecting the lower lobes which could be edema or pneumonia left-sided pleural effusion pericardial effusion. He was given diltiazem 20 mg x 1 diltiazem 30 mg IV x1 labetalol 20 mg IV x1 fluid bolus fentanyl metoprolol succinate had been started on amiodarone drip since then. His blood sugar is elevated this a.m. and his heart rate has remained in 140s to 50s in atrial flutter. With been started on vancomycin and cefepime to cover for pneumonia he was recently treated with Augmentin and azithromycin 3 weeks ago.MRSA PCR was detected. Echocardiogram has been ordered. Blood culture x2 has been ordered as well. Cardiology on board and currently NPO for possible cardioversion. pericardial effusion echo planned WALKER on CPAP Hyperlipidemia Hypertension Psoriasis/rheumatoid arthritis Morbid obesity Type 2 diabetes on oral hypoglycemic agents at home: Start basal bolus insulin regimen A1c by home health was 7.1 yesterday per patient. DVT prophylaxis: Heparin GTT Lines: Peripheral IV Code Status: Full code Monitor in IMU Subjective Date/time seen: 11/27/23 09:31 Interval history: 48-year-old male with history of morbid obesity hypertension [id number] diabetes mellitus lower extremity swelling tobacco abuse alcohol use COPD rheumatoid arthritis presented with tachycardia noted by home health and was sent to the ER. He denied any chest pain but does have chronic lower extremity edema and shortness of breath. He was recently treated for pneumonia and has been on steroid and antibiotics. Also started taking phentermine for weight loss in past few months. In the ED is found to be in atrial flutter with rapid rate of 150-160 remained normotensive after multiple blood pressure lowering medications systolic blood pressure dropped. EKG did not show any acute ischemia however troponin was mildly elevated at 0.039. BNP of 1 0 50. TSH 0.25. Cardiology has been consulted. CTA was performed which showed no PE but ground-glass opacities affecting the lower lobes which could be edema or pneumonia left-sided pleural effusion pericardial effusion. He was given diltiazem 20 mg x 1 diltiazem 30 mg IV x1 labetalol 20 mg IV x1 fluid bolus fentanyl metoprolol succinate had been started on amiodarone drip since then. His blood sugar is elevated this a.m. and his heart rate has remained in 140s to 50s in atrial flutter. With been started on vancomycin and cefepime to cover for pneumonia he was rece
[2023-11-27 09:34] LABS: Procalcitonin 0.1 ng/mL
[2023-11-27 09:37] LABS: Partial Thromboplastin Time > 200.0 Seconds (22.3-36.8)
[2023-11-27] MEDS: INSULIN GLARGINE (*BKC) 100 UNITS/ML 20 UNITS SUB-Q (10:20)
[2023-11-27] MEDS: FOLIC ACID 1 MG TABLET PO (10:21)
[2023-11-27] MEDS: MULTIVITAMINS THERAPEUTIC TAB (*BKC) 1 TABLET PO (10:21)
[2023-11-27] MEDS: INSULIN ASPART (*BKC) 100 UNITS/ML 15 UNITS SUB-Q (10:21)
[2023-11-27] MEDS: UMECLIDINIUM BROMIDE 62.5 MCG ELLIPTA 1 PUFF INHALATION (10:57)
--- NOTE | 2023-11-27 11:20 | IVDEFINITY ---
Prior to administration of IV Definity the patient was educated on the risks and benefits of the imaging enhancing agent including potential adverse side effects. The patient verbalized understanding. Allergies were verified. No exclusion criteria were identified and at least one of the following inclusion criteria were met: 1) physician request, 2) patient technically difficult to image (per the [place] [employer] guidelines of two or more segments not discernable within the apical view), or 3) questionable left ventricular function. ?
[2023-11-27 12:04] LABS: Glucose Point of Care 291 mg/dl (65-105)
[2023-11-27] MEDS: INSULIN ASPART (*BKC) 100 UNITS/ML SUB-Q ×3 (12:43→20:52)
[2023-11-27 14:15] LABS: Partial Thromboplastin Time 36.1 Seconds (22.3-36.8)
[2023-11-27 16:29] LABS: Glucose Point of Care 229 mg/dl (65-105)
[2023-11-27] MEDS: FUROSEMIDE INJ 40 MG/4 ML VIAL IV PUSH (17:27)
[2023-11-27 19:23] LABS: Hemoglobin A1C 8.1 % (<5.7)
[2023-11-27 20:05] LABS: Glucose Point of Care 245 mg/dl (65-105)
[2023-11-27] MEDS: METOPROLOL TARTRATE 25 MG TABLET PO (20:54)
[2023-11-27] MEDS: HEPARIN SOD/D5W 100 UNITS/ML 25,000 UNITS/250 ML BAG 26 UNITS IV CONT (23:34)
[2023-11-27 23:53] LABS: Glucose Point of Care 188 mg/dl (65-105)
[2023-11-28] VITALS (22 sets, daily range): BP systolic 102–136; BP diastolic 64–89; PULSE 89–159; RESP 16–28; TEMP 36.4–36.7; O2SAT 98–100
--- NOTE | 2023-11-28 | ECG_ITS ---
SEE SCANNED COPY FOR CONFIRMED REPORT MTDD
[2023-11-28] MEDS: PERFLUTREN LIPID MICROSPHERES 1.5 ML VIAL DILUTED TO 10 ML TOTAL VOLUME (01:10)
[2023-11-28] MEDS: CEFEPIME 2 GM/NS 50 ML 2 GM/50 ML BAG IVPB ×2 (04:07→11:46)
[2023-11-28 05:20] LABS: Basophils Absolute Auto 0.1 K/mm3 (0.0-0.1); Basophils Percent Auto 0.6 % (0.2-1.2); Eosinophils Absolute Auto 0.1 K/mm3 (0-0.3); Hematocrit 40.9 % (42.0-52.0); Hemoglobin 13.8 g/dL (14.0-18.0); Immature Granulocyte Absolute 0.05 K/mm3 (0.00-0.031); Immature Granulocyte Percent A 0.5 % (0-0.5); Lymphocytes Absolute Auto 1.32 K/mm3 (0.9-3.2); Lymphocytes Percent Auto 14.2 % (18.3-44.2); Mean Corpuscular HGB Conc 33.7 g/dl (32-36); Mean Corpuscular Hemoglobin 30.1 pg (26-34); Mean Corpuscular Volume 89.3 fl (80-100); Monocytes Absolute Auto 0.9 K/mm3 (0.1-0.6); Monocytes Percent Auto 9.8 % (2.6-8.5); Neutrophils Absolute Auto 6.9 K/mm3 (1.3-6.7); Neutrophils Percent Auto 73.9 % (45.5-73.1); Platelet Count Result 221 k/mm3 (150-375); Red Blood Count 4.58 M/mm3 (4.6-6.20); Red Cell Distribution Width 13.5 % (11.5-14.5); White Blood Count 9.3 K/mm3 (4.5-10.0)
[2023-11-28 05:31] LABS: Partial Thromboplastin Time 39.5 Seconds (22.3-36.8)
[2023-11-28 05:33] LABS: Alanine Aminotransferase 18 U/L (6-50); Albumin Level 3.6 g/dL (3.5-5.1); Alkaline Phosphatase 89 U/L (38-126); Anion Gap 5 mmol/L (4-12); Aspartate Amino Transferase 23 U/L (17-59); Bilirubin,Total 0.7 mg/dL (0.2-1.3); Blood Urea Nitrogen 13 mg/dL (9-20); Calcium 8.6 mg/dL (8.4-10.2); Carbon Dioxide 26 mmol/L (22-30); Chloride 105 mmol/L (98-107); Estimated CRCL calculation 224 ml/min; Estimated Glomerular Filt Rate > 60; Glucose 189 mg/dL (65-110); Magnesium 2.1 mg/dL (1.6-2.3); Potassium 3.3 mmol/L (3.4-5.0); Sodium 136 mmol/L (137-145)
[2023-11-28 05:44] LABS: Glucose Point of Care 195 mg/dl (65-105)
[2023-11-28] MEDS: HEPARIN SODIUM 5,000 UNITS/ML VIAL 9500 UNITS IV PUSH (06:25)
[2023-11-28 08:36] LABS: Vancomycin Trough 7.2 ug/mL (10.0-20.0)
[2023-11-28] MEDS: HEPARIN SOD/D5W 100 UNITS/ML 25,000 UNITS/250 ML BAG 31 UNITS IV CONT (09:32)
[2023-11-28] MEDS: METOPROLOL TARTRATE 25 MG TABLET PO (09:35)
[2023-11-28] MEDS: MULTIVITAMINS THERAPEUTIC TAB (*BKC) 1 TABLET PO (09:35)
[2023-11-28] MEDS: NICOTINE (*PBKC) 21 MG PATCH 1 PATCH TRANSDERM (09:35)
[2023-11-28] MEDS: FOLIC ACID 1 MG TABLET PO (09:36)
[2023-11-28] MEDS: VANCOMYCIN 2,000 MG/NS 500 ML 2,000 MG/500 ML BAG 250 MG IVPB (09:54)
[2023-11-28] MEDS: UMECLIDINIUM BROMIDE 62.5 MCG ELLIPTA 1 PUFF INHALATION (10:55)
[2023-11-28] MEDS: APIXABAN 5 MG TABLET PO (11:45)
[2023-11-28] MEDS: AMIODARONE 360 MG/D5W 200 ML 360 MG/200 ML BAG 16.67 MG IV CONT (11:46)
[2023-11-28 12:11] LABS: Glucose Point of Care 190 mg/dl (65-105)
[2023-11-28 12:58] LABS: Partial Thromboplastin Time 38.4 Seconds (22.3-36.8)
--- NOTE | 2023-11-28 13:07 | WPDANESEPP ---
Anes - Eval Pre Procedure Procedure: Operation Date: 11/28/23 13:30 Proposed Procedures p Electrical Cardioversion - Terra Cloud MD s Trans Esophageal Echo - Terra Cloud MD Date/Time: 11/28/23 13:07 Pre Op Diagnosis: A Flutter with RVR Patient Data Age: 48 Gender: M Height: 1.88 m Weight: 185.5 kg Last Vital Signs Temp 36.7 C 11/28/23 11:17 Pulse 154 H 11/28/23 11:46 Resp 20 11/28/23 11:17 BP 123/64 11/28/23 11:46 Pulse Ox 100 11/28/23 11:17 O2 Del Method Room Air 11/28/23 10:55 O2 Flow Rate 1 11/27/23 04:00 FiO2 21 11/28/23 08:00 Allergies Allergy/AdvReac Type Severity Reaction Status Date / Time No Known Allergies Allergy Verified 11/26/23 10:58 Home Medications Medication Instructions Recorded Confirmed Type furosemide 40 mg tablet 40 mg PO QAM 03/31/20 11/26/23 History glimepiride 4 mg tablet 4 mg PO QAM 03/31/20 11/26/23 History metformin 500 mg tablet 1,500 mg PO DAILY 03/31/20 11/26/23 History multivitamin 1 tablet PO DAILY 12/02/21 11/26/23 History folic acid 1 mg tablet 1 mg PO DAILY #90 tabs 07/19/23 11/26/23 Rx albuterol sulfate 90 mcg/actuation 2 puff inhalation Q4H PRN SOB 11/26/23 11/26/23 History aerosol inhaler ibuprofen 200 mg tablet (Advil) 800 mg PO Q6H PRN Pain 11/26/23 11/26/23 History losartan 100 1 tablet PO DAILY 11/26/23 11/26/23 History mg-hydrochlorothiazide 12.5 mg tablet phentermine 30 mg capsule 30 mg PO DAILY 11/26/23 11/26/23 History umeclidinium 62.5 mcg/actuation 1 inh inhalation DAILY 11/26/23 11/26/23 History blister powder for inhalation (Incruse Ellipta) Laboratory Tests 11/27/23 11/27/23 11/27/23 08:01 13:58 16:14 WBC RBC Hgb Hct MCV MCH MCHC RDW Plt Count MPV Immature Gran % (Auto) Neut % (Auto) Lymph % (Auto) [place] % (Auto) Eos % (Auto) Baso % (Auto) Lymph # (Auto) [place] # (Auto) Eos # (Auto) Baso # (Auto) Abs Immat Gran (auto) Absolute Neuts (auto) Absolute Nucleated RBC Nucleated RBC % APTT 36.1 Seconds (22.3-36.8) Sodium Potassium Chloride Carbon Dioxide Anion Gap BUN Creatinine Estim Creat Clear Calc Estimated GFR Glucose POC Capillary Glucose 229 H mg/dl (65-105) Hemoglobin A1c 8.1 H % (<5.7) Calcium Magnesium Total Bilirubin AST ALT Alkaline Phosphatase Total Protein Albumin Vancomycin Trough 11/27/23 11/27/23 11/27/23 19:53 21:28 23:50 WBC RBC Hgb Hct MCV MCH MCHC RDW Plt Count MPV Immature Gran % (Auto) Neut % (Auto) Lymph % (Auto) [place] % (Auto) Eos % (Auto) Baso % (Auto) Lymph # (Auto) [place] # (Auto) Eos # (Auto) Baso # (Auto) Abs Immat Gran (auto) Absolute Neuts (auto) Absolute Nucleated RBC Nucleated RBC % APTT 31.0 Seconds (22.3-36.8) Sodium Potassium Chloride Carbon Dioxide Anion Gap BUN Creatinine Estim Creat Clear Calc Estimated GFR Glucose POC Capillary Glucose 245 H mg/dl 188 H mg/dl (65-105) (65-105) Hemoglobin A1c Calcium Magnesium Total Bi
--- NOTE | 2023-11-28 13:12 | WPDANESEPPF ---
Anes - Initial Pre Proc Eval Procedure: Operation Date: 11/28/23 13:30 Proposed Procedures p Electrical Cardioversion - Terra Cloud MD s Trans Esophageal Echo - Terra Cloud MD Date/Time: 11/28/23 13:12 Surgeon: Sherri Mcgowan MD Pre Op Diagnosis: A Flutter with RVR Patient Data Age: 48 Gender: M Height: 1.88 m Weight: 185.5 kg Last Vital Signs Temp 98.0 F 11/28/23 11:17 Pulse 154 H 11/28/23 12:00 Resp 20 11/28/23 12:00 BP 123/64 11/28/23 11:46 Pulse Ox 100 11/28/23 12:00 O2 Del Method Room Air 11/28/23 12:00 O2 Flow Rate 1 11/27/23 04:00 FiO2 21 11/28/23 12:00 Allergies Allergy/AdvReac Type Severity Reaction Status Date / Time No Known Allergies Allergy Verified 11/26/23 10:58 Home Medications Medication Instructions Recorded Confirmed Type furosemide 40 mg tablet 40 mg PO QAM 03/31/20 11/26/23 History glimepiride 4 mg tablet 4 mg PO QAM 03/31/20 11/26/23 History metformin 500 mg tablet 1,500 mg PO DAILY 03/31/20 11/26/23 History multivitamin 1 tablet PO DAILY 12/02/21 11/26/23 History folic acid 1 mg tablet 1 mg PO DAILY #90 tabs 07/19/23 11/26/23 Rx albuterol sulfate 90 mcg/actuation 2 puff inhalation Q4H PRN SOB 11/26/23 11/26/23 History aerosol inhaler ibuprofen 200 mg tablet (Advil) 800 mg PO Q6H PRN Pain 11/26/23 11/26/23 History losartan 100 1 tablet PO DAILY 11/26/23 11/26/23 History mg-hydrochlorothiazide 12.5 mg tablet phentermine 30 mg capsule 30 mg PO DAILY 11/26/23 11/26/23 History umeclidinium 62.5 mcg/actuation 1 inh inhalation DAILY 11/26/23 11/26/23 History blister powder for inhalation (Incruse Ellipta) Laboratory Tests 04/23/24 04/23/24 04/23/24 08:01 13:58 16:14 WBC RBC Hgb Hct MCV MCH MCHC RDW Plt Count MPV Immature Gran % (Auto) Neut % (Auto) Lymph % (Auto) [place] % (Auto) Eos % (Auto) Baso % (Auto) Lymph # (Auto) [place] # (Auto) Eos # (Auto) Baso # (Auto) Abs Immat Gran (auto) Absolute Neuts (auto) Absolute Nucleated RBC Nucleated RBC % APTT 36.1 Seconds (22.3-36.8) Sodium Potassium Chloride Carbon Dioxide Anion Gap BUN Creatinine Estim Creat Clear Calc Estimated GFR Glucose POC Capillary Glucose 229 H mg/dl (65-105) Hemoglobin A1c 8.1 H % (<5.7) Calcium Magnesium Total Bilirubin AST ALT Alkaline Phosphatase Total Protein Albumin Vancomycin Trough 11/27/23 11/27/23 11/27/23 19:53 21:28 23:50 WBC RBC Hgb Hct MCV MCH MCHC RDW Plt Count MPV Immature Gran % (Auto) Neut % (Auto) Lymph % (Auto) [place] % (Auto) Eos % (Auto) Baso % (Auto) Lymph # (Auto) [place] # (Auto) Eos # (Auto) Baso # (Auto) Abs Immat Gran (auto) Absolute Neuts (auto) Absolute Nucleated RBC Nucleated RBC % APTT 31.0 Seconds (22.3-36.8) Sodium Potassium Chloride Carbon Dioxide Anion Gap BUN Creatinine Estim Creat Clear Calc Estimated GFR Glucose POC Capillary Glucose 245 H mg/dl 188 H mg/dl (65-105) (65-105) Hemoglobin A1c Calcium
--- NOTE | 2023-11-28 14:13 | WPDTECDV ---
SIERRA with Cardioversion Date of procedure: 11/28/23 Procedure Type: Date of Procedure: 11/28/2023 Brief History Of Present Illness: Patient is a pleasant 48 year old male who is referred for SIERRA-guided DCCV for atrial flutter with RVR. Diagnosis: Atrial flutter with RVR Indication For Procedure: Atrial flutter with RVR. Procedure In Detail: After verbal and written informed consent was obtained, the patient risks, benefits, and alternatives explained in detail. The patient agreed to proceed with the plan of care as outlined above.?Patient brought to laborer carpentry dock. The patient was then placed in the appropriate 30 to 45 degree angle supine position.?Patient was monitored throughout the study with telemetry, oxygen saturation, end-tidal CO2 monitoring, blood pressure, heart rate, and respirations.? The posterior hypopharynx was then locally anesthetized using repeated administration of Hurricaine spray as well as gargled viscous lidocaine.? After local anesthetic of the posterior hypopharynx was achieved and the oral bite block placed, sedation was administered by the Anesthesia team.? After confirmation of adequate moderate sedation, the transesophageal echocardiogram probe was advanced through the oral bite block into the posterior hypopharynx and into the esophagus easily and without complication.? Multiple, multiplanar echocardiographic images were obtained in multiple standard re- projections.? At the conclusion of the study, the transesophageal echocardiogram probe was removed easily and without complication.? The patient tolerated the procedure well without difficulty.? Moderate Sedation/Anesthesia administration: Sedation administered by the Anesthesia team. SIERRA FINDINGS: Smoke noted in the left atrium and left atrial appendage. No evidence of thrombus. Definity was administered for better visualization of the appendage. CARDIOVERSION: After confirming patient was adequately sedation, synchronized electrical cardioversion was performed with 1 shock at 360 joules, which restored sinus rhythm. Findings: Successful cardioversion to sinus rhythm with 1 shock at 360 joules. Conclusion: Successful cardioversion to sinus rhythm with 1 shock at 360 joules. Complications: None
--- NOTE | 2023-11-28 14:19 | PM.PNCARD ---
Progress Note: A&P Assessment and Plan (1) Atrial flutter with rapid ventricular response: Code(s): I48.92 - Unspecified atrial flutter Status: Acute Assessment and Plan: Underwent successful SIERRA-guided synchronized cardioversion to sinus rhythm with 1 shock at 360 joules. Stop IV Amiodarone drip. Will start PO Amiodarone 400mg daily. Continue beta roslyn. Stopped Heparin drip and started Eliquis 5mg BID. PXC1DM4-NEEX of 3 for hypertension, diabetes, CHF. Will need to be on long-term anticoagulation. (2) Cardiomyopathy: Code(s): I42.9 - Cardiomyopathy, unspecified Status: Acute Assessment and Plan: LVEF 30-35% on TTE, however, patient was in atrial flutter with RVR at the time of the study. Suspect tachycardia mediated given atrial flutter with RVR. Continue Metoprolol. Will reassess LVEF as an outpatient as patient in sinus rhythm now. (3) Pericardial effusion: Code(s): I31.39 - Other pericardial effusion (noninflammatory) Status: Acute Assessment and Plan: Small size on echo. (4) Tobacco dependence: Code(s): F17.200 - Nicotine dependence, unspecified, uncomplicated Status: Acute Assessment and Plan: Smoking cessation recommended. Plan Okay to discharge home from a cardiac standpoint. Will arrange for outpatient follow up in our office. Subjective Date/time seen: 11/28/23 14:19 Interval history: Reason for visit: Atrial flutter with RVR HPI: Vladimir Feng is a 48 year old male with type 2 diabetes mellitus, hypertension, WALKER on CPAP, and hyperlipidemia.? He is also smoker and uses alcohol.? He comes to the hospital because his home health nurse advised him to do so after finding that his heart rate was in the 170s yesterday.? At that time, he had no symptoms that would indicate that he was tachycardic.? He had however been experiencing some chest pain with deep breathing and with lying down flat.? In the emergency room, EKG demonstrated rapid atrial flutter.? He was given multiple doses of diltiazem with no reduction in his heart rate.? Therefore, IV Lopressor was attempted which resulted in his blood pressure dropping to the 80s systolic.? He was then placed on an amiodarone drip which he remains on now.? His heart rate remains in the 150s in atrial flutter.? He denies any history of cardiac problems including any a arrhythmias, heart failure, coronary artery disease (apparently had a stress test about a month ago which was negative).? He did come to [facility] a couple of weeks ago with a complaint of chest pain and had a full workup done which was essentially negative except for he was found to have a pneumonia she was treated for with antibiotics.? With note, he was placed on phentermine by his primary care doctor about a month or so ago.? He states that he began to notice some chest discomfort with deep breathing and lying down flat a few days ago but denies any palpitations, worsening edema, exertional chest pain, orthopnea, paroxysmal nocturnal dyspnea, syncope, or presyncope. Date of service 11/27: Remains in atrial flutter with RVR. On Amiodarone drip, Heparin drip. Review of Systems Review of Systems: All systems reviewed & are unremarkable except as noted in HPI and below (HPI) Exam Const: General: comfortable and no acute distress Eyes: General: appearance normal, both eyes and all related structures Sclera: sclerae normal Resp: Effort & Inspection: normal respiratory effort Cardio: Rate: tachycardic Rhythm: regular rhythm Skin: General skin exam: normal color Neuro: Speech: normal speech Psych: Mental Status: mental status grossly normal Affect: normal affect Objective Data Vital Signs Vital Signs: Vital Signs - 24 hr 11/27/23 16:00 11/27/23 16:00 11/27/23 16:00 Temperature 36.9 C Pulse Rate 156 H 156 H 156 H Respiratory Rate 20 20 Blood Pressure 120/79 Pulse Oximetry 100 100 Oxygen Sammie
[2023-11-28] MEDS: POTASSIUM CHLORIDE 20 MEQ ER TABLET 40 MEQ PO (14:32)
[2023-11-28] MEDS: AMIODARONE HCL 200 MG TABLET 400 MG PO (14:33)
--- NOTE | 2023-11-28 16:27 | PM.DS ---
DS: Admitting Diagnosis Discharge Date 11/28/23 Admitting Diagnosis Shortness of breath DS: Discharge Diagnosis Discharge Diagnosis (1) Atrial flutter with rapid ventricular response: Code(s): I48.92 - Unspecified atrial flutter Status: Acute (2) Cardiomyopathy: Code(s): I42.9 - Cardiomyopathy, unspecified Status: Acute (3) Current smoker: Code(s): F17.200 - Nicotine dependence, unspecified, uncomplicated Status: Acute (4) Leukocytosis: Code(s): D72.829 - Elevated white blood cell count, unspecified Status: Acute (5) Pericardial effusion: Code(s): I31.39 - Other pericardial effusion (noninflammatory) Status: Acute (6) Pleural effusion: Code(s): J90 - Pleural effusion, not elsewhere classified Status: Acute (7) Diabetes: Code(s): E11.9 - Type 2 diabetes mellitus without complications Status: Acute (8) Morbid obesity with BMI of 50.0-59.9, adult: Code(s): E66.01 - Morbid (severe) obesity due to excess calories; Z68.43 - Body mass index [BMI] 50.0-59.9, adult Status: Acute DS: Summary Hospital Course Reason for hospitalization: 48yo male with HTN, DM and tobacco abuse here for tachycardia noted by home health and was sent to the ER. Please see H&P for details. Hospital Course: He denied any chest pain but does have chronic lower extremity edema and shortness of breath. He was recently treated for pneumonia with Augmentin and Azithromycin. Also he recently started taking phentermine for weight loss over in past few months. In the ED is found to be in atrial flutter with rapid rate of 150-160 but remained normotensive. After multiple blood pressure lowering medications, his systolic blood pressure dropped. EKG did not show acute ischemia. Troponin peaked at 0.15 related to the AFib/RVR. BNP of 1050. TSH 0.26 and FT4 elevated at 2.45. Possible early hyperthyroidism; repeat TSH as outpatient. Cardiology was consulted. CTA chest was negative for PE but ground-glass opacities affecting the lower lobes, left pleural effusion and pericardial effusion. He was treated with diltiazem IV but ultimately started on amiodarone drip. Heart rate remained poorly controlled. He was started on anticoagulation as Heparin but changed to Eliquis. He was started on IV abx with vancomycin and cefepime. MRSA screen was positive. COVID, RSV and influenza negative. Echo showing EF 30-35% with reduced RV systolic function. Blood cultures no groweth to date. Patient underwent a successful SIERRA-guided cardioversion to normal sinus rhythm with 1 shock at 360j. He tolerated the procedure well. He feels better. He feels ready for discharge. Complete course of abx with Doxycycline and Augmentin; don't believe he needs atypical coverage since just finished Azithro. He overall did well and was able to be discharged home on 09/29/23. Status at Discharge Cognitive/behavioral status at discharge: stable Time Spent with Patient Time attestation: Total time spent providing and/or coordinating discharge services: 35 minutes Time spent: Greater than 30 minutes Specific discharge activities: discharge instruction on benefits of smoking cessation and how to avoid pitfalls. encouraged healthy lifestyle. Exam Narrative: AF 97.6 134/86 92 18 100% ra Gen - NARD Chest - CTA bilaterally, nml RR CV - RRR S1/S2 Abd - Soft, obese, NT Ext - bilateral LE edema Neuro - Alert and oriented. Nonfocal exam. Psych - Nml mood and affect Skin - Warm and dry DS: Data Data Completed and Pending Labs on day of discharge: Labs from last 24 hours 11/28/23 11/28/23 11/28/23 12:31 11:36 06:57 WBC RBC Hgb Hct MCV MCH MCHC RDW Plt Count MPV Immature Gran % (Auto) Neut % (Auto) Lymph % (Auto) [place] % (Auto) Eos % (Auto) Baso % (Auto) Lymph # (Auto) [place] # (Auto) Eos # (Auto) Baso # (A
--- NOTE | 2023-11-28 18:02 | PC.NURSE ---
11/28/23 17:53 to personal vehicle.
== END 2023-11-28 17:53 | disposition home or self-care (01) | DRG 309 ==
LOC: ANHED 15:09 → ANHIMU 15:41
PROVIDERS: Internal Medicine; Admitting Provider General Practice; Emergency Provider Emergency Medicine; PCP Internal Medicine; Visit Provider Internal Medicine
PROC: 5A2204Z Restoration of Cardiac Rhythm, Single (ICD-10-PCS; principal; 2023-11-28 13:30)
PROC: B245ZZ4 Ultrasonography of Left Heart, Transesophageal (ICD-10-PCS; CPT 93312; 2023-11-28 13:30)
DX: I48.92 Unspecified atrial flutter (principal); I31.39 Other pericardial effusion (noninflammatory); J90 Pleural effusion, not elsewhere classified; L10.0 Pemphigus vulgaris; Z68.43 Body mass index [BMI] 50.0-59.9, adult; I10 Essential (primary) hypertension; I42.9 Cardiomyopathy, unspecified; L40.50 Arthropathic psoriasis, unspecified; J44.9 Chronic obstructive pulmonary disease, unspecified; D72.829 Elevated white blood cell count, unspecified; E11.9 Type 2 diabetes mellitus without complications; E66.01 Morbid (severe) obesity due to excess calories; M19.90 Unspecified osteoarthritis, unspecified site; M05.70 Rheumatoid arthritis with rheumatoid factor of unspecified site without organ or systems involvement; G47.33 Obstructive sleep apnea (adult) (pediatric); F32.A Depression, unspecified; F17.210 Nicotine dependence, cigarettes, uncomplicated; F10.90 Alcohol use, unspecified, uncomplicated; Z22.322 Carrier or suspected carrier of Methicillin resistant Staphylococcus aureus
CPT/HCPCS: 36415; 71045; 71275; 80053; 80202; 82948; 83036; 83735; 83880; 84145; 84439; 84443; 84484; 85025; 85610; 85652; 85730; 86140; 87040; 87637; 87641; 92960; 93005; 93312; 93320; 93325; 94640; 96365; 96366; 96375; 99285; A9270; C8925; C8929; J0282; J0692; J1644; J1815; J1940; J2704; J3010; J3370; J7030; J7040; Q9957; Q9967